=== PATIENT | male | born 1940 | race Caucasian/White ===

== ENCOUNTER → 2018-02-08 | Outpatient (CLI) | payer MEDICARE, OTHER ==
[2018-02-08 12:29] LABS: ABSOLUTE EOSINOPHILS # (AUTO) 0.1 10^3/uL (0.0-0.6); ABSOLUTE LYMPHOCYTES (AUTO) 1.4 10^3/uL (0.5-4.7); ABSOLUTE MONOCYTES (AUTO) 0.4 10^3/uL (0.1-1.4); ABSOLUTE NEUT (AUTO) 3.9 10^3/uL (1.7-8.2); BASOPHILS % (AUTO) 0.3 % (0-2); EOSINOPHILS % (AUTO) 1.2 % (0-6); HEMATOCRIT 36.7 % (37.9-51.0); HEMOGLOBIN 12.4 g/dL (13.5-17.0); LYMPHOCYTES % (AUTO) 24.5 % (13-45); MEAN CORPUSCULAR HEMOGLOBIN 29.3 pg (27.0-33.4); MEAN CORPUSCULAR HGB CONC 33.8 g/dL (32.0-36.0); MEAN CORPUSCULAR VOLUME 87 fl (80-97); MONOCYTES % (AUTO) 6.6 % (3-13); PLATELET COUNT 155 10^3/uL (150-450); RED BLOOD COUNT 4.24 10^6/uL (4.35-5.55); RED CELL DISTRIBUTION WIDTH 13.1 % (11.5-14.0); SEGMENTED NEUTROPHILS % (AUTO) 67.4 % (42-78); TOTAL CELLS COUNTED % (AUTO) 100 %; WHITE BLOOD COUNT 5.8 10^3/uL (4.0-10.5)
[2018-02-08 12:59] LABS: ALANINE AMINOTRANSFERASE 31 U/L (21-72); ALBUMIN 4.3 g/dL (3.5-5.0); ALKALINE PHOSPHATASE 50 U/L (38-126); ANION GAP 11 (5-19); ASPARTATE AMINO TRANSFERASE 26 U/L (17-59); BILIRUBIN,DIRECT 0.2 mg/dL (0.0-0.4); BILIRUBIN,TOTAL 0.4 mg/dL (0.2-1.3); BLOOD UREA NITROGEN 20 mg/dL (7-20); CALCIUM 9.5 mg/dL (8.4-10.2); CARBON DIOXIDE 28 mmol/L (22-30); CHLORIDE 104 mmol/L (98-107); GLUCOSE 107 mg/dL (75-110); POTASSIUM 5.4 mmol/L (3.6-5.0); SODIUM 143.1 mmol/L (137-145); TOTAL PROTEIN 6.5 g/dL (6.3-8.2)
== END ==
LOC: OD 11:30
PROVIDERS: ATTEND Physician Assistant
DX: I10 Essential (primary) hypertension (principal); Z11.2 Encounter for screening for other bacterial diseases
CPT/HCPCS: 36415; 80053; 85025

== ENCOUNTER 2020-10-29 14:59 | Emergency (ER) | payer MEDICARE ==
--- NOTE | 2020-10-29 15:45 | ER Document Report ---
ED Medical Screen (RME) - General Chief Complaint: Flu Symptoms Stated Complaint: COUGH Time Seen by Provider: 10/29/20 15:35 Primary Care Provider: EMELYN THORNE PA [Primary Care Provider] - Follow up as needed Notes: HPI: 80-year-old male with history of coronary artery disease, hypertension presenting for 6 days of cough with some shortness of breath. Patient has had generalized body ache and myalgia as well. Saw his PCP yesterday was placed on Levaquin and steroids states that those caused generalized extremity spasms in the upper extremities last night. Did not feel any better today so called his PCP back who referred him to the emergency department for evaluation of possible Covid PHYSICAL EXAMINATION: Lung sounds are clear to auscultation although somewhat decreased in the bases. Regular rate and rhythm. Ambulatory in no acute distress I have greeted and performed a rapid initial assessment of this patient. A comprehensive ED assessment and evaluation of the patient, analysis of test results and completion of medical decision making process will be conducted by an additional ED providers. TRAVEL OUTSIDE OF THE [place] IN LAST 30 DAYS: No - Related Data Allergies/Adverse Reactions: No Known Allergies Allergy (Verified 10/29/20 15:30) Past Medical History - Past Medical History Cardiac Medical History: Reports: Hx Coronary Artery Disease, Hx Hypercholesterolemia, Hx Hypertension Pulmonary Medical History: Denies: Hx Tuberculosis Past Surgical History: Reports: Hx Appendectomy - Immunizations Hx Diphtheria, Pertussis, Tetanus Vaccination: Yes Physical Exam - Vital signs Vitals: Temp Pulse Resp BP Pulse Ox 100.0 F 100 20 149/61 H 95 10/29/20 15:07 10/29/20 15:07 10/29/20 15:07 10/29/20 15:07 10/29/20 15:07 Course - Vital Signs Vital signs: Temp Pulse Resp BP Pulse Ox 100.0 F 100 20 149/61 H 95 10/29/20 15:07 10/29/20 15:07 10/29/20 15:07 10/29/20 15:07 10/29/20 15:07 - Laboratory Results Critical Laboratory Results Reviewed: No Critical Results - Radiology Results Critical Radiology Results Reviewed: No Critical Results Doctor's Discharge - Discharge Referrals: EMELYN THORNE PA [Primary Care Provider] - Follow up as needed
--- NOTE | 2020-10-29 16:24 | RADIOLOGY REPORT (SQ) ---
EXAM DESCRIPTION: CHEST SINGLE VIEW IMAGES COMPLETED DATE/TIME: 10/29/2020 4:08 pm REASON FOR STUDY: cough COMPARISON: 11/24/2014. EXAM PARAMETERS: NUMBER OF VIEWS: One view. TECHNIQUE: Single frontal radiographic view of the chest acquired. RADIATION DOSE: NA LIMITATIONS: None. FINDINGS: LUNGS AND PLEURA: Minimal linear densities in the lung bases, left greater than right. No lobar infiltrates, masses or pneumothorax. No pleural effusion. MEDIASTINUM AND HILAR STRUCTURES: No masses. Contour normal. HEART AND VASCULAR STRUCTURES: Heart normal in size. Normal vasculature. BONES: No acute findings. HARDWARE: None in the chest. Hardware in the left shoulder. OTHER: No other significant finding. IMPRESSION: MILD BASILAR ATELECTASIS/ SCARRING. POSSIBLE EARLY AIRSPACE DISEASE IN THE LEFT LUNG BA SE. TECHNICAL DOCUMENTATION: JOB ID: [id number] [employer]- All Rights Reserved Reading location - IP/workstation name: [email or web address]
[2020-10-29 16:46] LABS: ABSOLUTE LYMPHOCYTES (AUTO) 0.9 10^3/uL (0.5-4.7); ABSOLUTE MONOCYTES (AUTO) 0.3 10^3/uL (0.1-1.4); ABSOLUTE NEUT (AUTO) 3.8 10^3/uL (1.7-8.2); BASOPHILS % (AUTO) 0.1 % (0-2); HEMATOCRIT 30.4 % (37.9-51.0); HEMOGLOBIN 10.2 g/dL (13.5-17.0); LYMPHOCYTES % (AUTO) 17.6 % (13-45); MEAN CORPUSCULAR HEMOGLOBIN 28.1 pg (27.0-33.4); MEAN CORPUSCULAR HGB CONC 33.6 g/dL (32.0-36.0); MEAN CORPUSCULAR VOLUME 84 fl (80-97); MONOCYTES % (AUTO) 6.7 % (3-13); PLATELET COUNT 127 10^3/uL (150-450); RED BLOOD COUNT 3.64 10^6/uL (4.35-5.55); SEGMENTED NEUTROPHILS % (AUTO) 75.6 % (42-78); TOTAL CELLS COUNTED % (AUTO) 100 %
[2020-10-29] MEDS ORDERED: ACETAMINOPHEN SOLN 325 MG/10.15 ML UDCUP PO ONE ×2 (17:08→18:02)
[2020-10-29 17:16] LABS: ALBUMIN 3.8 g/dL (3.5-5.0); ALKALINE PHOSPHATASE 66 U/L (38-126); ANION GAP 9 (5-19); ASPARTATE AMINO TRANSFERASE 89 U/L (17-59); BILIRUBIN,DIRECT 0.2 mg/dL (0.0-0.4); BLOOD UREA NITROGEN 21 mg/dL (7-20); CALCIUM 7.9 mg/dL (8.4-10.2); CARBON DIOXIDE 25 mmol/L (22-30); CHLORIDE 103 mmol/L (98-107); GLUCOSE 109 mg/dL (75-110); POTASSIUM 4.3 mmol/L (3.6-5.0); TOTAL PROTEIN 6.9 g/dL (6.3-8.2)
[2020-10-29] MEDS ORDERED: NORMAL SALINE 500 ML IV ONE (17:33)
--- NOTE | 2020-10-29 17:37 | ER Document Report ---
ED General - General Chief Complaint: Flu Symptoms Stated Complaint: COUGH Time Seen by Provider: 10/29/20 15:35 Primary Care Provider: EMELYN THORNE PA [PHYSICIAN PAYROLL SECRETARY] - Follow up as needed TRAVEL OUTSIDE OF THE [place] IN LAST 30 DAYS: No - HPI Notes: Patient is a 80-year-old male who presents to the emergency department for evaluation of cough. The patient had symptoms for about 6 days. He has an intermittently productive cough. He states he just feels weak and malaised. He denies any known fever, states he has been taking his temperature at home with a scanning thermometer, it has never been elevated. He saw his primary care provider yesterday. He was started on steroids and Levaquin. He started those, states last night he had uncontrollable shaking, spasms in his arm, and does not believe he can tolerate these medications. Patient states he has some pain in his lower back because he has been laying around in bed more frequently, but he denies any other pain. No anosmia, no difficulty with sense of taste. No sore throat or ear pain. No nausea, vomiting, nor diarrhea. His influenza shot is up-to-date. - Related Data Allergies/Adverse Reactions: No Known Allergies Allergy (Verified 10/29/20 15:30) Home Medications: List reviewed, please see nursing notes Past Medical History - General Information source: Patient - Social History Smoking Status: Former Smoker Family History: None - Past Medical History Cardiac Medical History: Reports: Hx Coronary Artery Disease, Hx Hypercholesterolemia, Hx Hypertension Pulmonary Medical History: Denies: Hx Tuberculosis GI Medical History: Reports: Hx Gastroesophageal Reflux Disease Past Surgical History: Reports: Hx Appendectomy, Hx Cardiac Catheterization - multiple stents - Immunizations Hx Diphtheria, Pertussis, Tetanus Vaccination: Yes Hx Pneumococcal Vaccination: 08/13/12 Review of Systems - Review of Systems Constitutional: See HPI EENT: No symptoms reported Cardiovascular: No symptoms reported Respiratory: See HPI Gastrointestinal: No symptoms reported Genitourinary: No symptoms reported Musculoskeletal: See HPI Skin: No symptoms reported Neurological/Psychological: No symptoms reported Physical Exam - Vital signs Vitals: Temp Pulse Resp BP Pulse Ox 100.0 F 100 20 149/61 H 95 10/29/20 15:07 10/29/20 15:07 10/29/20 15:07 10/29/20 15:07 10/29/20 15:07 - Notes Notes: Vital signs reviewed, please refer to chart. Head is normocephalic, atraumatic. Pupils equal round, reactive to light. Oral mucosa is moist. Pharynx is mildly erythematous without exudate. Neck is supple without meningismus. Heart is regular rate and rhythm. Lungs reveal diminished breath sounds in the bases but no wheezes, rales, rhonchi noted. Abdomen is soft, nontender, normoactive bowel sounds throughout. Extremities without cyanosis, clubbing. Posterior calves are nontender. Peripheral pulses are equal. Skin is hot to the touch and dry. Patient is awake, alert, neurological exam is nonfocal. Course - Re-evaluation Re-evalutation: 10/29/20 17:35 Patient presents the emergency department for evaluation. He was initially seen through triage. Laboratory investigations, influenza swab, Covid test, chest x- ray were ordered. He was also ordered Tylenol. His initial temperature was listed as 100.0, at the time of my exam I suspect it is much higher. Temperature is to be retaken. He is still waiting to get his Tylenol. Chest x-ray interpreted by radiology as showing possible beginning of the left lower lobe infiltrate. The patient is not tolerating Levaquin. I do not believe that steroids are indicated at this point, certainly because he would still be a rule out Covid patient, and it is possible that steroids cause harm in the setting of normal oxygenation. He is told to discontinue the Levaquin and the steroids. I will start him on a different antibiotic for pneumonia. IV fluids ordered. Patient is currently stable. - Vital Signs Vital signs: Temp Pulse Resp BP Pulse Ox 102.9 F H 100 24 H 131/61 H 93 10/29/20 17:37 10/29/20 15:07 10/29/20 17:01 10/29/20 17:00 10/29/20 17:01 - Laboratory Results Result Diagrams: 10/29/20 16:19 10/29/20 16:19 Laboratory Results Interpreted: 10/29/20 10/29/20 16:19 16:19 RBC 3.64 L Hgb 10.2 L Hct 30.4 L Plt Count 127 L Sodium 136.9 L BUN 21 H Creatinine 1.30 H Est GFR (MDRD) Non-Af 53 L Calcium 7.9 L AST 89 H ALT 57 H Critical Laboratory Results Reviewed: No Critical Results - Radiology Results Radiology Results Interpreted: 10/29/20 18:32 Chest X-Ray 10/29/20 15:42 IMPRESSION: MILD BASILAR ATELECTASIS/ SCARRING. POSSIBLE EARLY AIRSPACE DISEASE IN THE LEFT LUNG BASE. Critical Radiology Results Reviewed: No Critical Results Discharge - Discharge Clinical Impression: Person under investigation for COVID-19 Pneumonia Qualifiers: Pneumonia type: due to unspecified organism Laterality: left Lung location: lower lobe of lung Qualified Code(s): J18.9 - Pneumonia, unspecified organism Condition: Stable Disposition: HOME, SELF-CARE Instructions: COVID-19 Guidance for Persons Under Investigation, Acetaminophen, Pneumonia ([facility]) Additional Instructions: Your findings this evening are concerning for possible early pneumonia. Please discontinue the Levaquin and the steroids you had previously started. Take the doxycycline as directed until it is gone. At this point you are considered a person under investigation for possible COVID-19 and infection. You should quarantine at home, as should any other members of your household, for the next 10 to 14 days. Symptomatic medications as needed. Follow-up with your primary care provider. If you develop worsening or new concerning symptoms of any sort, please return immediately to the emergency department for reevaluation. Referrals: EMELYN THORNE PA [PHYSICIAN PAYROLL SECRETARY] - Follow up as needed
[2020-10-29 17:46] LABS: A TYPE INFLUENZA AG NEGATIVE (NEGATIVE); B INFLUENZA AG NEGATIVE (NEGATIVE)
[2020-10-29] MEDS ORDERED: ACETAMINOPHEN 325 MG TABLET PO ONE (17:54)
[2020-10-29] MEDS ORDERED: DOXYCYCLINE HYCLATE 100 MG TABLET PO ONE (18:31)
[2020-10-29 19:04] VITALS: BP 138/67
== END 2020-10-29 19:08 | disposition home or self-care (01) ==
LOC: ER 14:59
DX: U07.1 COVID-19 (principal); J18.9 Pneumonia, unspecified organism; R53.1 Weakness; R53.81 Other malaise; R50.9 Fever, unspecified
CPT/HCPCS: 99284; 96360; 36415; 85025; 80053; 84484; 87804; 71045; U0003; A9270 ×2; J7040; C9803; 87635; J3490

== ENCOUNTER 2020-11-14 16:00 | Emergency (ER) | payer MEDICARE, OTHER ==
--- NOTE | 2020-11-14 16:46 | ER Document Report ---
ED Medical Screen (RME) - General Chief Complaint: Nose Bleed Stated Complaint: NOSE BLEED Time Seen by Provider: 11/14/20 16:39 Primary Care Provider: LEXUS YUNG MD [Primary Care Provider] - Follow up as needed TRAVEL OUTSIDE OF THE [place] IN LAST 30 DAYS: No - HPI Notes: 11/14/20 16:40 9-year-old male presents to the emergency room today for epistaxis that started approximately 1 hour ago. Patient reports that he did have a nosebleed the other day, was able to pinch it off with pressure and petroleum jelly. States today he was just out and about and he felt break open and he has had copious amount of blood drained from his left nostril. Patient is on baby aspirin. Patient is Covid positive. Denies any chest pain, shortness of breath, lightheadedness, dizziness, blurred vision, double vision, loss of vision. I have greeted and performed a rapid initial assessment of this patient. A comprehensive ED assessment and evaluation of the patient, analysis of test results and completion of the medical decision making process will be conducted by additional ED providers. PHYSICAL EXAMINATION: GENERAL: Well-appearing, well-nourished and in no acute distress. HEAD: Atraumatic, normocephalic. ENT: active bleeding from left nostril. neuro: speech clear The patient was evaluated during a global COVID-19 pandemic and that diagnosis was suspected/considered upon their initial presentation. Their evaluation, treatment and testing was consistent with current guidelines for patients who present with complaints or symptoms and may be related to COVID-19. - Related Data Allergies/Adverse Reactions: No Known Allergies Allergy (Verified 10/29/20 15:30) Past Medical History - Past Medical History Cardiac Medical History: Reports: Hx Coronary Artery Disease, Hx Hypercholesterolemia, Hx Hypertension Pulmonary Medical History: Denies: Hx Tuberculosis GI Medical History: Reports: Hx Gastroesophageal Reflux Disease Past Surgical History: Reports: Hx Appendectomy, Hx Cardiac Catheterization - multiple stents - Immunizations Hx Diphtheria, Pertussis, Tetanus Vaccination: Yes Physical Exam - Vital signs Vitals: Temp Pulse Resp BP Pulse Ox 97.7 F 84 20 134/75 H 97 11/14/20 16:02 11/14/20 16:02 11/14/20 16:02 11/14/20 16:02 11/14/20 16:02 Course - Vital Signs Vital signs: Temp Pulse Resp BP Pulse Ox 97.7 F 84 20 134/75 H 97 11/14/20 16:02 11/14/20 16:02 11/14/20 16:02 11/14/20 16:02 11/14/20 16:02 Doctor's Discharge - Discharge Referrals: LEXUS YUNG MD [Primary Care Provider] - Follow up as needed
[2020-11-14] MEDS ORDERED: OXYMETAZOLINE HCL 0.05% NASAL SPRAY 15 ML BOTTLE NASL ONE (18:34)
--- NOTE | 2020-11-14 19:03 | ER Document Report ---
ED ENT - General TRAVEL OUTSIDE OF THE [place] IN LAST 30 DAYS: No <LUDWIN SCALES - Last Filed: 11/14/20 18:59> <ANGELIKA LOUISE Mati - Last Filed: 11/14/20 22:38> - General Chief Complaint: Nose Bleed Stated Complaint: NOSE BLEED Time Seen by Provider: 11/14/20 16:39 Primary Care Provider: ALLYSSA RIVERA DO [ASSOCIATE] - Follow up as needed LEXUS YUNG MD [Primary Care Provider] - Follow up as needed Notes: CHIEF COMPLAINT: Nosebleed HPI: 80-year-old male presenting to the emergency department for evaluation of nosebleed tonight. Patient is on Plavix. Patient states that he had a nosebleed a week ago that resolved with pressure. He states the nosebleed tonight also resolved with pressure. He states he feels well otherwise. States he was diagnosed with Covid 3 weeks ago and did quarantine for 10 days. Has no cough or fevers. ROS: See HPI - all other systems were reviewed and are otherwise negative Constitutional: no fever Eyes: no drainage, no blurred vision ENT: no runny nose, no sore throat, positive nosebleed Cardiovascular: no chest pain Resp: no SOB, no cough GI: no vomiting, no diarrhea, no abdominal pain : no dysuria Integumentary: no rash Allergy: no hives MEDICATIONS: I agree with the patient medications as charted by the RN. ALLERGIES: I agree with the allergies as charted by the RN. PAST MEDICAL HISTORY/PAST SURGICAL HISTORY: Reviewed and agree as charted by RN. SOCIAL HISTORY: Reviewed and agree as charted by RN. FAMILY HISTORY: No significant familial comorbid conditions directly related to patient complaint EXAM: Reviewed vital signs as charted by RN. CONSTITUTIONAL: Alert and oriented and responds appropriately to questions. Well-appearing; well-nourished HEAD: Normocephalic; atraumatic EYES: PERRL; Conjunctivae clear, sclerae non-icteric ENT: normal nose; no rhinorrhea; moist mucous membranes; pharynx without lesions noted, no uvula edema or deviation, no tonsillar hypertrophy, phonation normal. There is no active bleeding currently in the posterior pharynx or the left or right nares. Small amount of dried blood in the left nares but no definitive site of bleeding. NECK: Supple without meningismus; non-tender; no cervical lymphadenopathy, no masses CARD: RRR; no murmurs, no clicks, no rubs, no gallops; symmetric distal pulses RESP: Normal chest excursion without splinting or tachypnea; breath sounds clear and equal bilaterally; no wheezes, no rhonchi, no rales, pulse oximetry 98% on room air not hypoxic ABD/GI: non-distended BACK: The back appears normal EXT: Normal ROM in all joints; no cyanosis, no effusions, no edema SKIN: Normal color for age and race; warm; dry; good turgor NEURO: Moves all extremities equally; Motor and sensory function intact PSYCH: The patient's mood and manner are appropriate. Grooming and personal hygiene are appropriate. MDM: 80-year-old male left nosebleed tonight. No active bleeding currently. Will have nursing place Afrin on a cottonball in the left nostril to help seal what is likely a small venous bleed. He is on Plavix. Will check baseline screening labs including CBC CMP, PT. If patient has no rebleeding and labs are normal anticipate discharge home to follow-up with ENT (LUDWIN SCALES) MDM: 11/14/20 20:00 Patient handoff from Ludwin Scales NP. 11/14/20 22:30 Labwork resulted. CBC shows a low hemoglobin of 9.2. Patient's hemoglobin 10.2 on 10/29/20. I advised that the patient follow up with his PCP concerning his anemia. CMP and PT are unremarkable and within normal limits. Patient re-evaluated and afrin soaked cottonball removed. No bleeding visualized in either nare and no blood seen in the posterior pharynx. Patient will be discharged home with referral to ENT. Return precautions given. (ANGELIKA LOUISE) - Related Data Allergies/Adverse Reactions: No Known Allergies Allergy (Verified 10/29/20 15:30) Past Medical History - Social History Family History: None - Past Medical History Cardiac Medical History: Reports: Hx Coronary Artery Disease, Hx Hypercholesterolemia, Hx Hypertension Pulmonary Medical History: Denies: Hx Tuberculosis GI Medical History: Reports: Hx Gastroesophageal Reflux Disease Past Surgical History: Reports: Hx Appendectomy, Hx Cardiac Catheterization - multiple stents - Immunizations Hx Diphtheria, Pertussis, Tetanus Vaccination: Yes Hx Pneumococcal Vaccination: 08/13/12 <LUDWIN SCALES - Last Filed: 11/14/20 18:59> - Social History Smoking Status: Unknown if Ever Smoked <ANGELIKA LOUISE - Last Filed: 11/14/20 22:38> Physical Exam - Vital signs Vitals: Temp Pulse Resp BP Pulse Ox 97.7 F 84 20 134/75 H 97 11/14/20 16:02 11/14/20 16:02 11/14/20 16:02 11/14/20 16:02 11/14/20 16:02 Course - Laboratory Results Result Diagrams: 11/14/20 20:15 11/14/20 20:15 Critical Laboratory Results Reviewed: No Critical Results - Radiology Results Critical Radiology Results Reviewed: No Critical Results <ANGELIKA LOUISE - Last Filed: 11/14/20 22:38> - Vital Signs Vital signs: Temp Pulse Resp BP Pulse Ox 97.7 F 73 14 142/73 H 100 11/14/20 20:08 11/14/20 19:49 11/14/20 19:49 11/14/20 19:49 11/14/20 19:49 - Laboratory Results Laboratory Results Interpreted: 11/14/20 11/14/20 20:15 20:15 RBC 3.22 L Hgb 9.2 L Hct 27.2 L RDW 14.7 H Plt Count 92 L Carbon Dioxide 32 H Anion Gap 1 L Calcium 7.7 L Total Protein 5.3 L Albumin 2.8 L Discharge <LUDWIN SCALES - Last Filed: 11/14/20 18:59> <ANGELIKA LOUISE - Last Filed: 11/14/20 22:38> - Discharge Clinical Impression: Epistaxis Condition: Stable Disposition: HOME, SELF-CARE Additional Instructions: You were seen today for a nosebleed. If this restarts please apply direct pressure to the area for 15 minutes without releasing pressure. You can use 4-5 sprays the Afrin (oxymetazoline) spray that was given to you here in the emergency room into the affected side prior to applying the pressure. You need t o apply vasaline or a similar product along the inside of the side of the nose that is bleeding twice daily to help heal the inside of your nose. Please return to emergency department if these measures do not control the bleeding. Please also return if you pass out, have significant pain of the nose or face, or any other symptoms that are concerning to you. Your primary care doctor regarding today's visit. Referrals: LEXUS YUNG MD [Primary Care Provider] - Follow up as needed ALLYSSA RIVERA DO [ASSOCIATE] - Follow up as needed
[2020-11-14 20:45] LABS: ABSOLUTE EOSINOPHILS # (AUTO) 0.1 10^3/uL (0.0-0.6); ABSOLUTE LYMPHOCYTES (AUTO) 1.3 10^3/uL (0.5-4.7); ABSOLUTE MONOCYTES (AUTO) 0.2 10^3/uL (0.1-1.4); ABSOLUTE NEUT (AUTO) 4.8 10^3/uL (1.7-8.2); BASOPHILS % (AUTO) 0.2 % (0-2); EOSINOPHILS % (AUTO) 1.7 % (0-6); HEMATOCRIT 27.2 % (37.9-51.0); HEMOGLOBIN 9.2 g/dL (13.5-17.0); LYMPHOCYTES % (AUTO) 20.5 % (13-45); MEAN CORPUSCULAR HEMOGLOBIN 28.5 pg (27.0-33.4); MEAN CORPUSCULAR HGB CONC 33.8 g/dL (32.0-36.0); MEAN CORPUSCULAR VOLUME 84 fl (80-97); MONOCYTES % (AUTO) 3.3 % (3-13); RED BLOOD COUNT 3.22 10^6/uL (4.35-5.55); RED CELL DISTRIBUTION WIDTH 14.7 % (11.5-14.0); SEGMENTED NEUTROPHILS % (AUTO) 74.3 % (42-78); TOTAL CELLS COUNTED % (AUTO) 100 %; WHITE BLOOD COUNT 6.5 10^3/uL (4.0-10.5)
[2020-11-14 20:51] LABS: INTERNATIONAL RATION (INR) 1.02; PROTHROMBIN TIME 13.6 SEC (11.4-15.4)
[2020-11-14 21:00] LABS: ALBUMIN 2.8 g/dL (3.5-5.0); ALKALINE PHOSPHATASE 58 U/L (38-126); ASPARTATE AMINO TRANSFERASE 30 U/L (17-59); BILIRUBIN,DIRECT 0.1 mg/dL (0.0-0.4); BILIRUBIN,TOTAL 0.5 mg/dL (0.2-1.3); BLOOD UREA NITROGEN 18 mg/dL (7-20); CALCIUM 7.7 mg/dL (8.4-10.2); CHLORIDE 105 mmol/L (98-107); GLUCOSE 110 mg/dL (75-110); POTASSIUM 3.8 mmol/L (3.6-5.0); TOTAL PROTEIN 5.3 g/dL (6.3-8.2)
[2020-11-14 21:05] LABS: CARBON DIOXIDE 32 mmol/L (22-30)
[2020-11-14 21:08] LABS: PLATELET COUNT 92 10^3/uL (150-450)
[2020-11-14 21:12] LABS: ANION GAP 1 (5-19)
[2020-11-14 22:57] VITALS: BP 116/67
== END 2020-11-14 22:50 | disposition home or self-care (01) ==
LOC: ER 16:00
DX: R04.0 Epistaxis (principal); Z79.02 Long term (current) use of antithrombotics/antiplatelets; I25.10 Atherosclerotic heart disease of native coronary artery without angina pectoris; I10 Essential (primary) hypertension
CPT/HCPCS: 99283; 36415; 85025; 85610; 80053; 30901; A9270; J3490

== ENCOUNTER 2020-11-15 06:42 | Emergency (ER) | payer MEDICARE ==
[2020-11-15 06:59] VITALS: BP 121/54
[2020-11-15] MEDS ORDERED: LIDOCAINE 2% URO-JET 5 ML KIT MM ONE (08:19)
--- NOTE | 2020-11-15 08:33 | ER Document Report ---
ED ENT - General Chief Complaint: Nose Bleed Stated Complaint: NOSE BLEEDS/ACTIVE BLEED Time Seen by Provider: 11/15/20 08:11 Primary Care Provider: ALLYSSA RIVERA DO [ASSOCIATE] - Follow up as needed LEXUS YUNG MD [Primary Care Provider] - Follow up as needed Notes: CHIEF COMPLAINT: Nosebleed this morning HPI: 80-year-old male presenting for evaluation of the left nosebleed again this morning. Woke up at 5 AM with bleeding from the left nostril. Patient was seen here yesterday for same complaint. Patient denies other concerns at this time. ROS: See HPI - all other systems were reviewed and are otherwise negative Constitutional: no fever Eyes: no drainage, no blurred vision ENT: no runny nose, no sore throat, positive nosebleed Integumentary: no rash Allergy: no hives MEDICATIONS: I agree with the patient medications as charted by the RN. ALLERGIES: I agree with the allergies as charted by the RN. PAST MEDICAL HISTORY/PAST SURGICAL HISTORY: Reviewed and agree as charted by RN. SOCIAL HISTORY: Reviewed and agree as charted by RN. FAMILY HISTORY: No significant familial comorbid conditions directly related to patient complaint EXAM: Reviewed vital signs as charted by RN. CONSTITUTIONAL: Alert and oriented and responds appropriately to questions. Well-appearing; well-nourished HEAD: Normocephalic; atraumatic EYES: PERRL; Conjunctivae clear, sclerae non-icteric ENT: normal nose; no rhinorrhea; moist mucous membranes; pharynx without lesions noted, no uvula edema or deviation, no tonsillar hypertrophy, phonation normal. There is some fresh blood in the left nostril. Small amount of fresh blood in the posterior pharynx. No active hemorrhage. NECK: Supple without meningismus; non-tender; no cervical lymphadenopathy, no masses CARD: RRR; no murmurs, no clicks, no rubs, no gallops; symmetric distal pulses RESP: Normal chest excursion without splinting or tachypnea; breath sounds clear and equal bilaterally; no wheezes, no rhonchi, no rales, pulse oximetry 97% on room air not hypoxic ABD/GI: Normal bowel sounds; non-distended; soft, non-tender, no rebound, no guarding; no palpable organomegaly or masses. BACK: The back appears normal EXT: Normal ROM in all joints; no cyanosis, no effusions, no edema SKIN: Normal color for age and race; warm; dry; good turgor; no acute lesions noted NEURO: Moves all extremities equally; Motor and sensory function intact PSYCH: The patient's mood and manner are appropriate. Grooming and personal hygiene are appropriate. MDM: 80-year-old male bleeding from the left nostril second visit for same. I did review the patient's labs from yesterday, noted to be mildly anemic. Patient does not want blood redrawn today. States his normal hemoglobin is ranges between 9 and 11. Given second visit for nosebleed we will plan to insert Rhino Rocket and refer to ENT. TRAVEL OUTSIDE OF THE [place] IN LAST 30 DAYS: No - Related Data Allergies/Adverse Reactions: No Known Allergies Allergy (Verified 11/15/20 07:47) Home Medications: clopedigrel, metoprol, omeprazole, ezetimibe, lisinopril, Rosuvastatin, CoQ10, ASA Past Medical History - Social History Smoking Status: Former Smoker Chew tobacco use (# tins/day): No Frequency of alcohol use: Occasional Drug Abuse: None Family History: None Patient has homicidal ideation: No - Past Medical History Cardiac Medical History: Reports: Hx Coronary Artery Disease, Hx Hypercholesterolemia, Hx Hypertension Pulmonary Medical History: Denies: Hx Tuberculosis GI Medical History: Reports: Hx Gastroesophageal Reflux Disease Past Surgical History: Reports: Hx Appendectomy, Hx Cardiac Catheterization - multiple stents - Immunizations Hx Diphtheria, Pertussis, Tetanus Vaccination: Yes Hx Pneumococcal Vaccination: 08/13/12 Physical Exam - Vital signs Vitals: Temp Pulse Resp BP Pulse Ox 97.8 F 78 18 121/54 L 94 11/15/20 06:54 11/15/20 06:54 11/15/20 06:54 11/15/20 06:54 11/15/20 06:54 Course - Re-evaluation Re-evalutation: 11/15/20 08:49 Initially I was unable to place a 5.5 cm Rhino Rocket in the left nostril patient was very uncomfortable despite numbing medicine. I placed a Merisel in the left nostril which seemed to stop any blood flow but approximately 5 minutes after the Merisel was placed patient called me back into the room as he was bleeding copiously from the nose and down the posterior pharynx. I remove the Merisel and was able to more fully insert the 5.5 cm Rhino Rocket in the left nostril to tamponade the blood flow. I did inflate it and will observe the patient for rebleeding. 11/15/20 09:46 No further bleeding at this time patient wishes to go home. Will be referred to ENT. - Vital Signs Vital signs: Temp Pulse Resp BP Pulse Ox 97.8 F 78 18 121/54 L 94 11/15/20 06:54 11/15/20 06:54 11/15/20 06:54 11/15/20 06:54 11/15/20 06:54 - Laboratory Results Critical Laboratory Results Reviewed: No Critical Results - Radiology Results Critical Radiology Results Reviewed: No Critical Results Procedures - Nosebleed Procedure Left Time completed: 08:54 Location: Posterior Supplies used: Nasal tampon, Rhinorocket Notes: Left nostril packed with a 5.5 cm Rhino Rocket after Merocel did not stop bleeding Discharge - Discharge Clinical Impression: Epistaxis Condition: Stable Disposition: HOME, SELF-CARE Instructions: Nosebleed Instructions (OM) Additional Instructions: 1. do not blow the nose as this may lead to further bleeding 2. if the nose rebleeds, pinch the nose to apply pressure and tilt the head forward 3. follow up with ENT for further evaluation and treatment call for appt 4. return to the ED for any onset of nasal bleeding that does not stop with pressure as discussed 5. use a humidifier at home to help prevent rebleeding 6. The packing will need to be removed by the ENT in office 7. Hold the Plavix for the next 3 days Prescriptions: Hydrocodone/Acetaminophen [Rodessa 5-325 mg Tablet] 1 tab PO Q6HP PRN #10 tablet PRN Reason: Amoxicillin/Potassium Clav [Augmentin 875-125 Tablet] 1 tab PO Q12 #10 tablet Referrals: LEXUS YUNG MD [Primary Care Provider] - Follow up as needed ALLYSSA RIVERA DO [ASSOCIATE] - Follow up as needed
== END 2020-11-15 10:01 | disposition home or self-care (01) ==
LOC: ER 06:42
DX: R04.0 Epistaxis (principal); I25.10 Atherosclerotic heart disease of native coronary artery without angina pectoris; E78.00 Pure hypercholesterolemia, unspecified; I10 Essential (primary) hypertension; K21.9 Gastro-esophageal reflux disease without esophagitis; Z79.899 Other long term (current) drug therapy; Z79.82 Long term (current) use of aspirin; Z87.891 Personal history of nicotine dependence
CPT/HCPCS: 30901; 99284; A9270; J3490

== ENCOUNTER 2020-12-14 08:12 | Emergency (ER) | payer MEDICARE ==
--- NOTE | 2020-12-14 08:35 | ER Document Report ---
ED ENT - General Chief Complaint: Nose Bleed Stated Complaint: NOSE BLEED Time Seen by Provider: 12/14/20 08:34 Primary Care Provider: LEXUS YUNG MD [Primary Care Provider] - Follow up as needed Mode of Arrival: Ambulatory Information source: Patient Notes: PRIOR ED VISITEmergency Provider: LUDWIN NINADate: 11/15/20 08:30 Primary Care Provider: ALLYSSA RIVERA DO [ASSOCIATE] - Follow up as needed LEXUS YUNG MD [Primary Care Provider] - Follow up as needed CHIEF COMPLAINT: Nosebleed this morning HPI: 80-year-old male presenting for evaluation of the left nosebleed again this morning. Woke up at 5 AM with bleeding from the left nostril. Patient was seen here yesterday for same complaint. Patient denies other concerns at this time. 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 Patient reports hx of chronic nosebleed and has been assessed in ED multiple times with same complaint. Patient reports last visit, nose required "packing". 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 Patient reports scab was present. Patient reports he has been using Simply Saline at home as instructed. Patient reports mild runny nose and reports some intermittent sneezing. Patient reports this morning he ambulated to the bathroom, sat down. Reports he was not straining at the time nosebleed began. Patient reports bleeding is mostly L nostril but reports blood coming from R nostril d/t "overflowing". Patient reports he is currently on blood thinners. Patient taking Plavix. Patient is AOx4 with even and unlabored respirations speaking in clear and complete sentences, nad noted. Ambulatory with even and steady gait. at bedside. 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 Patient reports nosebleeds on a left-sided basis with some running down his right nostril as well. He is spitting up blood clots. Patient reports this is the worst he has ever had of nosebleed. 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 Also "10 days ago he had ENT DrKelseyka partner cauterized the back of his nose with a silver nitrate stick. " We were forced to use TXA on this patient's nose as well as Afrin spray and also a nasal tampon with TXA coated. We applied some K-Y jelly to the tampon prior to insertion. We also applied a nasal clip to his external nose. Patient's blood pressure was 150 systolic and he says he usually takes Plavix and aspirin 81 mg on a daily basis. Patient also takes metoprolol daily; he reports his blood pressure usually runs no more than 130 systolic. TRAVEL OUTSIDE OF THE [place] IN LAST 30 DAYS: No - HPI Patient complains to provider of: Nose problem Onset: This morning Onset/Duration: Sudden, Persistent, Worse Severity: Moderate Pain Level: 2 Context: Injury. denies: Allergies, Recent Illness, Travel Location of pain: Nose Similar symptoms previously: Yes Recently seen / treated by doctor: Yes - Related Data Allergies/Adverse Reactions: No Known Allergies Allergy (Verified 11/15/20 07:47) Home Medications: [place], Omeprazole, Lisinopril, Metoprolol, Plavix Past Medical History - Social History Smoking Status: Unknown if Ever Smoked Family History: None - Past Medical History Cardiac Medical History: Reports: Hx Coronary Artery Disease, Hx Hypercholesterolemia, Hx Hypertension Pulmonary Medical History: Denies: Hx Tuberculosis GI Medical History: Reports: Hx Gastroesophageal Reflux Disease Past Surgical History: Reports: Hx Appendectomy, Hx Cardiac Catheterization - multiple stents - Immunizations Hx Diphtheria, Pertussis, Tetanus Vaccination: Yes Hx Pneumococcal Vaccination: 08/13/12 Physical Exam - Vital signs Vitals: Temp Resp BP 98.7 F 20 158/75 H 12/14/20 08:17 12/14/20 08:17 12/14/20 08:17 Interpretation: Normal - General General appearance: Appears well, Alert - HEENT Head: Normocephalic, Atraumatic Eyes: Normal Extraocular movements intact: Yes Pupils: PERRL Ears: Normal Nasal: Epistaxis - Left greater than the right nostril. Mouth/Lips: Normal - Except for blood clots from posterior throat. Pharynx: Other - Blood clots draining from superiorly Neck: Normal - Respiratory Respiratory status: No respiratory distress Chest status: Nontender Breath sounds: Normal Chest palpation: Normal - Cardiovascular Rhythm: Regular Heart sounds: Normal auscultation Murmur: No - Abdominal Inspection: Normal Distension: No distension Bowel sounds: Normal Tenderness: Nontender Organomegaly: No organomegaly - Rectal Prostate: Other - Deferred - Genitourinary Scrotum: Other - Deferred - Back Back: Normal, Nontender - Extremities General upper extremity: Normal inspection, Nontender, Normal color, Normal ROM, Normal temperature General lower extremity: Normal inspection, Nontender, Normal color, Normal ROM, Normal temperature, Normal weight bearing. No: Baljeet's sign - Neurological Neuro grossly intact: Yes Cognition: Normal Orientation: AAOx4 [place] Coma Scale Eye Opening: Spontaneous [place] Coma Scale Verbal: Oriented [place] Coma Scale Motor: Obeys Commands Benny Coma Scale Total: 15 Speech: Normal Motor strength normal: LUE, RUE, LLE, RLE Sensory: Normal - Psychological Associated symptoms: Normal affect, Normal mood - Skin Skin Temperature: Warm Skin Moisture: Dry Skin Color: Normal Course - Vital Signs Vital signs: Temp Pulse Resp BP Pulse Ox 98.7 F 95 20 120/60 12/14/20 08:17 12/14/20 11:02 12/14/20 08:17 12/14/20 11:02 Procedures - Nosebleed Procedure Left Time completed: 09:21 Location: Anterior Supplies used: Nasal tampon, Other - TXA and Afrin nasal spray; patient tolerated this well but had sneezing around 0 915 Critical Care Note - Critical Care Note Total time excluding time spent on procedures (mins): 90 - nasal packing and calling referrals Comments: 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 Rivera ENT and voice male message was sent. Patient much improved by 1100 hrs. and eating a turkey sandwich but reports patient feels he cannot go home. CT scan reveals bilateral sinus fluid and patient was written for Augmentin 875. I called [facility] and spoke with Spc Peralta and she will arrange for discussion with ENT. She returned call at 1133 and advised that she spoke with the ENT on-call and they advised tertiary care centers but also advised they are on diversion at this time as well. I spoke with patient about this situation and he advises [facility] because his personal Dr. Brown; I attempted to reach Arjay around 1140 but was only able to reach a return call site. This is on the transfer center line. By 1210 I was able to speak with Sheryl who advised Dr. Piper reported to her on telephone line that patient should have a ENT here. Discharge - Discharge Clinical Impression: Epistaxis not due to trauma Hypertension Qualifiers: Hypertension type: unspecified Qualified Code(s): I10 - Essential (primary) hypertension Condition: Stable Referrals: LEXUS YUNG MD [Primary Care Provider] - Follow up as needed
[2020-12-14] MEDS ORDERED: TRANEXAMIC ACID INJ/PF 1,000 MG/10 ML SDV TOP ONE (08:39)
[2020-12-14] MEDS ORDERED: BENZOCAINE 20% AEROSOL SPRAY 60 GM TP ONE ×2 (08:46→08:47)
[2020-12-14] MEDS ORDERED: OXYMETAZOLINE HCL 0.05% NASAL SPRAY 15 ML BOTTLE NASL ONE (08:48)
[2020-12-14] MEDS ORDERED: CLONIDINE HCL 0.1 MG TABLET PO ONE (09:17)
--- NOTE | 2020-12-14 10:25 | RADIOLOGY REPORT (SQ) ---
EXAM DESCRIPTION: CT FACIAL AREA WITHOUT IMAGES COMPLETED DATE/TIME: 12/14/2020 9:44 am REASON FOR STUDY: nosebleed basal cell cancer COMPARISON: None. TECHNIQUE: Noncontrasted images through the facial bones and orbits windowed for bone and soft tissu e. Additional coronal and sagittal reconstructed images reviewed. All images stored on PACS. All CT scanners at this facility use dose modulation, iterative reconstruction, and/or weight based d osing when appropriate to reduce radiation dose to as low as reasonably achievable (ALARA). [facility]: Dose Right [facility]: CareDose [facility]: Dose Right [facility]: Teradose 4D [facility]: Smart Shopography RADIATION DOSE: CT Rad equipment meets quality standard of care and radiation dose reduction techniq ues were employed. CTDIvol: 30.4 mGy. DLP: 642 mGy-cm. mGy. LIMITATIONS: None. FINDINGS: FACIAL BONES: No fracture or bone lesion. ORBITS: Intact. No fracture. Symmetric intact globes and retroorbital soft tissues. NASAL PASSAGE: Heterogenous material filling the left nasal passage. S shaped curvature of the nasa l septum. PARANASAL SINUSES: Fluid in the maxillary sinuses. Small amounts of fluid in the lower left ethmoid s inuses and minimal fluid in the sphenoid sinuses. SOFT TISSUES: No mass or edema. INFERIOR BRAIN: Limited view. No acute findings. OTHER: No other significant finding. IMPRESSION: HETEROGENOUS MATERIAL FILLING THE LEFT NASAL PASSAGE, NONSPECIFIC. PRESUMABLY DUE TO BL OOD. FLUID IN THE SINUSES. NO FRACTURES. TECHNICAL DOCUMENTATION: JOB ID: [id number] Quality ID # [id number]: Final reports with documentation of one or more dose reduction techniques (e.g., Au tomated exposure control, adjustment of the mA and/or kV according to patient size, use of iterative reconstruction technique) 2010 [employer]- All Rights Reserved Reading location - IP/workstation name: [email or web address]
--- NOTE | 2020-12-14 10:26 | RADIOLOGY REPORT (SQ) ---
EXAM DESCRIPTION: CT HEAD WITHOUT IMAGES COMPLETED DATE/TIME: 12/14/2020 9:44 am REASON FOR STUDY: nosebleed basal cell cancer COMPARISON: 04/13/2009. TECHNIQUE: Axial images acquired through the brain without intravenous contrast. Images reviewed wi th bone, brain and subdural windows. Additional sagittal and coronal reconstructions were generated. Images stored on PACS. All CT scanners at this facility use dose modulation, iterative reconstruction, and/or weight based d osing when appropriate to reduce radiation dose to as low as reasonably achievable (ALARA). [facility]: Dose Right [facility]: CareDose [facility]: Dose Right [facility]: Teradose 4D [facility]: Smart [employer]ify RADIATION DOSE: CT Rad equipment meets quality standard of care and radiation dose reduction techniq ues were employed. CTDIvol: 53.2 mGy. DLP: 1150 mGy-cm. mGy. LIMITATIONS: None. FINDINGS: VENTRICLES: Normal size and contour. CEREBRUM: No masses. No hemorrhage. No midline shift. No evidence for acute infarction. Normal gra y/white matter differentiation. No areas of low density in the white matter. CEREBELLUM: No masses. No hemorrhage. No alteration of density. No evidence for acute infarction. EXTRAAXIAL SPACES: No fluid collections. No masses. ORBITS AND GLOBE: No intra- or extraconal masses. Normal contour of globe without masses. CALVARIUM: No fracture. PARANASAL SINUSES: See separate report of the CT facial bones. SOFT TISSUES: No mass or hematoma. OTHER: No other significant finding. IMPRESSION: NORMAL BRAIN CT WITHOUT CONTRAST. EVIDENCE OF ACUTE STROKE: NO. COMMENT: Quality ID # [id number]: Final reports with documentation of one or more dose reduction techniques (e.g., Automated exposure control, adjustment of the mA and/or kV according to patient size, use of iterative reconstruction technique) TECHNICAL DOCUMENTATION: JOB ID: [id number] 2010 [employer]- All Rights Reserved Reading location - IP/workstation name: [email or web address]
[2020-12-14] MEDS ORDERED: AMOXICILLIN TR/POT CLAVULANATE 875-125 MG TAB PO ONE (11:11)
[2020-12-14 12:32] VITALS: BP 112/56
== END 2020-12-14 12:34 | disposition home or self-care (01) ==
LOC: ER 08:12
DX: R04.0 Epistaxis (principal); R09.89 Other specified symptoms and signs involving the circulatory and respiratory systems; Z79.899 Other long term (current) drug therapy; I25.10 Atherosclerotic heart disease of native coronary artery without angina pectoris; I10 Essential (primary) hypertension
CPT/HCPCS: 99284; 70450; 70486; 30901; J3490 ×3; A9270 ×2

== ENCOUNTER 2020-12-15 04:56 | Emergency (ER) | payer MEDICARE, OTHER ==
[2020-12-15] MEDS ORDERED: TRANEXAMIC ACID INJ/PF 1,000 MG/10 ML SDV TOP STA ×2 (05:44→06:30)
[2020-12-15] MEDS ORDERED: OXYMETAZOLINE HCL 0.05% NASAL SPRAY 15 ML BOTTLE ONE (06:12)
[2020-12-15] MEDS ORDERED: TRANEXAMIC ACID INJ/PF 1,000 MG/10 ML SDV ONE (06:16)
[2020-12-15] MEDS ORDERED: OXYMETAZOLINE HCL 0.05% NASAL SPRAY 15 ML BOTTLE NASL ONE (06:30)
[2020-12-15] MEDS ORDERED: AMOXICILLIN TR/POT CLAVULANATE 875-125 MG TAB PO ONE (06:31)
[2020-12-15] MEDS ORDERED: HYDROCODONE/ACETAMINOPHEN 5-325 MG (6 TAB/ER DISP) PO PRN (06:31)
--- NOTE | 2020-12-15 06:37 | ER Document Report ---
ED General - General Chief Complaint: Nose Bleed Stated Complaint: NOSE BLEED Time Seen by Provider: 12/15/20 05:43 Primary Care Provider: LEXUS YUNG MD [Primary Care Provider] - Follow up as needed TRAVEL OUTSIDE OF THE [place] IN LAST 30 DAYS: No - HPI Context: Chief Complaint: Nosebleed [This is a 80-year-old male retired [employer] presenting to the [facility] department for the fifth time in the course of the month complaining of acute nosebleed. Patient states that bleeding started around 0415 this morning, but has been going on throughout the night intermittently. Patient states he was here yesterday and had a rhino rocket placed by Dr. Sorto. Patient then went over to [facility] around 1300 hrs. yesterday and had the Rhino Rocket removed. At the time it was removed the bleeding was controlled but unfortunately it started up again overnight. ] History obtained from [patient] Symptoms began:[Last night] Onset: [Sudden] Timing: [Intermittent] Quality: [Light at times and heavy bleeding at other times] Intensity: [Mild at times and then severe at other times] Location: [Left nostril] Radiation: [Denies] [The pain does not migrate to a new location.] Aggravating factors: [none] Relieving factors: [none] [Denies] SOB [Denies] nausea [Denies] vomiting [Denies] sweats [Denies] fever [Denies] cough [Denies] calf or leg swelling or pain - Related Data Allergies/Adverse Reactions: No Known Allergies Allergy (Verified 11/15/20 07:47) Past Medical History - General Information source: Patient - Social History Smoking Status: Never Smoker Frequency of alcohol use: Occasional Drug Abuse: None Family History: None Patient has homicidal ideation: No - Past Medical History Cardiac Medical History: Reports: Hx Coronary Artery Disease, Hx Hypercholesterolemia, Hx Hypertension Pulmonary Medical History: Denies: Hx Tuberculosis GI Medical History: Reports: Hx Gastroesophageal Reflux Disease Past Surgical History: Reports: Hx Appendectomy, Hx Cardiac Catheterization - multiple stents - Immunizations Hx Diphtheria, Pertussis, Tetanus Vaccination: Yes Hx Pneumococcal Vaccination: 08/13/12 Review of Systems - Review of Systems Notes: Review of systems as below unless otherwise stated in HPI. CONSTITUTIONAL [No] fever, [No] chills. EYES [No] eye pain. ENT [No] URI symptoms, [No] sore throat, [No] ear pain. Positive epistaxis CARDIOVASCULAR [No] chest pain, [No] palpitations, [No] edema. RESPIRATORY [No] Cough, [No] SOB, [No] wheezing. GASTROINTESTINAL [No] abdominal pain, [No] nausea, [No] Diarrhea, [No] Vomiting, [No] constipation, [No] melena, [No] rectal bleeding. GENITOURINARY [No] dysuria, [No] urinary frequency, [No] hematuria, [No] urinary urgency MUSCULOSKELETAL [No] Back pain. SKIN [No] Rash. NEUROLOGIC [No] Headache, [No] recent seizures, [No] paralysis,[No] parathesias. ENDOCRINE [No] polyuria. HEMO/LYMPATIC [No] easy brusing PSYCHIATRIC [No] depression. Physical Exam - Vital signs Vitals: Temp Pulse Resp BP Pulse Ox 97.5 F 91 18 136/74 H 100 12/15/20 05:03 12/15/20 05:03 12/15/20 05:03 12/15/20 05:03 12/15/20 05:03 - Notes Notes: CONSTITUTIONAL [Vital signs reviewed, Patient appears comfortable, Alert and oriented X 3, Normal stature.] HEAD [Atraumatic, Normocephalic.] EYES [Eyes are normal to inspection, No discharge from eyes, Extraocular muscles intact, Sclera are normal, Conjunctiva are normal.] ENT [External ears normal to inspection, Nose examination significant for bleeding from the left nostril but exact site of bleed is not visible, Mouth normal to inspection.] NECK [Normal ROM, No jugular venous distention, No meningeal signs, ] RESPIRATORY CHEST [Chest is nontender, Breath sounds normal, No respiratory distress.] CARDIOVASCULAR [RRR, No murmurs, Normal S1 S2, No rub, No gallop.] ABDOMEN [Abdomen is nontender, No pulsatile masses, No other masses, Bowel sounds normal, No distension, No peritoneal signs, No hernias.] BACK [There is no CVA Tenderness, There is no tenderness to palpation, Normal inspection.] UPPER EXTREMITY [Inspection normal, No cyanosis, No clubbing, No edema, LOWER EXTREMITY [Inspection normal, No cyanosis, No clubbing, No edema, No calf tenderness, NEURO [No focal motor deficits, No focal sensory deficits, Speech normal.] SKIN [Skin is warm, Skin is dry, Skin is normal color.] PSYCHIATRIC [Normal affect. ] Course - Re-evaluation Re-evalutation: Differential diagnosis: Anterior epistaxis, posterior epistaxis, coagulopathy MDM: 7.5 cm Rhino Rocket was inserted in the typical fashion which appears to have stopped the bleeding. Patient is instructed to follow-up with the ENT doctor he is scheduled to see tomorrow for further evaluation of the etiology of the patient's nosebleed. 12/15/20 06:55 Bleeding is controlled at this time. Patient has been prescribed pain medication and antibiotics and is scheduled for follow-up with a ear nose and throat doctor tomorrow. All questions were answered prior to discharge. Emergency signs and symptoms, reasons to return to the emergency department dis cussed with patient. - Vital Signs Vital signs: Temp Pulse Resp BP Pulse Ox 97.6 F 85 22 H 130/78 H 100 12/15/20 06:42 12/15/20 06:42 12/15/20 06:42 12/15/20 06:42 12/15/20 06:42 - Laboratory Results Critical Laboratory Results Reviewed: No Critical Results - Radiology Results Critical Radiology Results Reviewed: No Critical Results Procedures - Nosebleed Procedure Left Time completed: 06:30 Location: Posterior Supplies used: Rhinorocket, Other - TXA Notes: Rhino Rocket appears to be successfully placed. There is no blood saturation seen on around the Rhino Rocket. The right nostril does not have any blood in it. There is no blood seen in the posterior oropharynx of the patient. Discharge - Discharge Clinical Impression: Posterior epistaxis Condition: Stable Disposition: HOME, SELF-CARE Additional Instructions: Return to the Emergency Department without delay if any worse. Follow-up with [facility] tomorrow 12/16/2020 as scheduled. HOME CARE INSTRUCTIONS & INFORMATION: Thank you for choosing us for your medical needs. We hope you're satisfied with the care you received. After you leave, you must properly care for your problem and, at the same time, observe its progress. Any condition can change. Some illnesses can change rapidly over hours or days. If your condition worsens, return to the Emergency Department or see your physician promptly. ABOUT YOUR X-RAYS AND EKG'S: If you had an EKG or X-rays taken, they have been read by the Emergency Physician. The X-rays and EKG's will also be read by a Radiologist or Reed Man within 24 hours. If discrepancies are noted, you will be notified by telephone. Please be certain the ED has a correct telephone number & address where you can be reached. Also, realize that some fractures or abnormalities do not show up on initial X-rays. If your symptoms continue, see your physician. ABOUT YOUR LABORATORY TEST: If you had laboratory tests, the results have been reviewed by the Emergency Physician. Some test results (for example cultures) may not be available for several days. You will be contacted if any test result shows you need additional treatment. Please be certain the ED has a correct telephone number and address where you can be reached. ABOUT YOUR MEDICATIONS: You will receive instructions on how to take your medicine on the prescription label you receive. Additional information may be provided by the Pharmacy. If you have questions afterwards, call the ED for clarification or further instructions. Some prescribed medications may cause drowsiness. Do not perform tasks such as driving a car or operating machinery without consulting your Pharmacist. If you feel you need a refill of pain medication, your condition will need re-evaluation. Please do not call for a refill of any medication. ABOUT YOUR SIGNATURE: Signature of this document acknowledges to followin. Understanding that you received emergency treatment and that you may be released before al medical problems are known or treated. Please be certain the ED has a correct phone number & address where you can be reached. 2. Acknowledgement that you will arrange for follow-up care as recommended. 3. Authorization for the Emergency Physician to provide information to your follow-up Physician in order to maximize your care. AT ANY TIME, IF YOUR SYMPTOMS CHANGE SIGNIFICANTLY OR WORSEN OR YOU DEVELOP NEW SYMPTOMS, RETURN TO THE EMERGENCY DEPARTMENT IMMEDIATELY FOR RE-EVALUATION. OUR GOAL IS TO PROVIDE EXCELLENT MEDICAL CARE! WE HOPE THAT WE HAVE MET YOUR EXPECTATIONS DURING YOUR EMERGENCY DEPARTMENT VISIT AND THAT YOU FEEL YOU HAVE RECEIVED EXCELLENT CARE! Nosebleed Instructions There is a significant chance of re-bleeding following a nosebleed. Proper care makes this less likely. Do not touch the nose for 24 hours. Do not blow the nose forcefully for one week. After 24 hours, gently apply Vaseline ointment to both nostrils with the tip of a finger, three times a day, for one week. It's normal to have a bloody mucous discharge for a few days. If active bleeding recurs, blow all the blood from the nose, then sit quietly and pinch the nose as firmly as possible for 10 minutes. If this does not stop the bleeding, return for further care. If packing was left in the nose and it starts to come out of the nostril, either tuck it back in or cut it off. Don't pull it out. Return for recheck and removal of the packing when instructed. Persons with frequent nosebleeds should avoid aspirin (unless prescribed for another reason). Humidity in the bedroom, and petroleum jelly applied to the nostrils at night may help. Prescriptions: Hydrocodone/Acetaminophen [[place] 5-325 mg Tablet] 1 tab PO Q6HP PRN #10 tablet PRN Reason: pain Amoxicillin/Potassium Clav [Augmentin 875-125 Tablet] 1 tab PO BID #20 tab Referrals: LEXUS YUNG MD [Primary Care Provider] - Follow up as needed
[2020-12-15 06:43] VITALS: BP 130/78
--- OUTSIDE RECORDS SUMMARY | 2020-12-17 10:40 | XMS REPORT ---
:1940 Author Organization [facility] [address] [place] [address] Care Team Providers Name Role Phone RUTHANN YUNG Primary Care Physician Unavailable Maegan MOCTEZUMA Attending Clinician Unavailable Eugenie Yung MD Attending Clinician Unavailable Allergies, Adverse Reactions, Alerts This patient has no known allergies or adverse reactions. Medications Ordered Filled Start Stop Current Ordering Indication Dosage Frequency Signature Comments Components Medication Medication Date Date Medication? Clinician (SIG) Name Name Decadron 6 2019-11 No Niko Traore QD Decadron 6 MG Oral - Towarnicky MG Oral Tablet 00:00: Tablet 00 TAKE 1 TABLET DAILY FOR 10 DAYS Quantity: 10 Refills: 0 Niko Yung MD Start : 0Active predniSONE 2019-11 No Niko Traore predniSONE 5 MG (21) - Towarnicky 5 MG (21) Oral Tablet 00:00: Oral Therapy 00 Tablet Pack Therapy Pack Prednisone 6 day therapy pack Quantity: 1 Refills: 0 Niko Yung MD Start : 28-Oct-2020 Active 21 Tablet Pack levoFLOXaci 2019-11 Maty Traore QD levoFLOXa c n 500 MG - Sathish in 500 MG Oral Tablet 00:00: Oral 00 Tablet TAKE 1 TABLET DAILY Quantity: 7 Refills: 0 Niko Yung MD Start : 28-Oct-2020 Active Doxycycline 2019-11 No Niko Traore Q0.5D Doxycycli n Hyclate 100 - Sathish e Hyclate MG Oral 00:00: 100 MG Capsule 00 Oral Capsule TAKE 1 CAPSULE TWICE DAILY for 10 days Quantity: 20 Refills: 0 Niko Yung MD Start : 0Active Omeprazole 2019-11 Yes Niko Traore QD Omeprazole 40 MG Oral 0-21 Towarnicky 40 MG Oral Capsule 12:15: Capsule Delayed 13 Delayed Release Release TAKE 1 CAPSULE DAILY IN THE MORNING Quantity: 90 Refills: 3 Niko Yung MD Start : 0Active Ezetimibe Yes Niko Traore Ezetimibe 10 MG Oral 1- Towarnicky 10 MG Oral Tablet 09:43: Tablet 22 Take 1 tablet at bedtime Quantity: 90 Refills: 4 Niko Yung MD Start : 24-Nov-2019 Active Rosuvastati 2019- Yes Niko Traore Rosuvasta t n Calcium - Sathish in Calcium 10 MG Oral 09:42: 10 MG Oral Tablet 35 Tablet TAKE 1 TABLET DAILY DIRECTED (DISCONTIN UE SIMVASTATI N) Quantity: 90 Refills: 4 Niko Yung MD Start : 24-Nov-2019 Active Lisinopril 2018-11 No Niko Traore QD Lisinopril 10 MG Oral - Towarnicky 10 MG Oral Tablet 09:43: Tablet 21 TAKE 1 TABLET DAILY DIRECTED Quantity: 90 Refills: 4 Niko Yung MD Start : 9Active Clopidogrel 2018-11 No Niko Traore 1 QD Clopidogr e Bisulfate - Towarnicky l 75 MG Oral 09:43: Bisulfate Tablet 11 75 MG Oral Tablet TAKE 1 TABLET DAILY Quantity: 90 Refills: 4 Niko Yung MD Start : 9Active Metoprolol 2018-11 Yes Niko Traore 1 QD Metoprolol Tartrate 25 2- Towarnicky Tartrate MG Oral 09:43: 25 MG Oral Tablet 06 Tablet TAKE 1 TABLET DAILY Quantity: 90 Refills: 4 Niko Yung MD Start : 9Active Omeprazole No Niko Traore Omeprazole 40 MG Oral 1- Towarnicky 40 MG Oral Capsule 00:00: Capsule Delayed 00 Delayed Release Release TAKE 1 CAPSULE BY MOUTH DAILY IN THE MORNING Quantity: 90 Refills: 3 Niko Yung MD Start : 9Active Clopidogrel Yes Niko Traore 1 QD Clopidogr e Bisulfate -31 Towarnicky l 75 MG Oral 00:00: Bisulfate Tablet 00 75 MG Oral Tablet TAKE 1 TABLET DAILY Quantity: 90 Refills: 4 Niko Yung MD Start : 3Active Lisinopril Yes Niko Traore QD Lisinopril 10 MG Oral 6-14 Ummarnicky 10 MG Oral Tablet 00:00: Tablet 00 TAKE 1 TABLET DAILY DIRECTED Quantity: 90 Refills: 4 Niko Yung MD Start : 2Active Aspirin 81 Yes Niko Traore 1 QD Aspirin 81 81 MG Oral 6-25 Ummarnicky 81 MG Oral Tablet 00:00: Tablet Delayed 00 Delayed Release Release TAKE 1 TABLET DAILY Quantity: 90 Refills: 3 Niko Yung MD Start : 9Active Co Q10 100 Yes Niko Traore Co Q10 100 MG Oral 6-25 Ummarnicky MG Oral Capsule 00:00: Capsule 00 TAKE DIRECTED. Refills: 0 Niko Yung MD Start : 9Active Glucosamine No Glucosamin 1500 e 1500 Complex Complex Oral Oral Capsule Capsule TAKE DIRECTED. Refills: 0 Active Vitamin B12 No Vitamin TABS B12 TABS 200mg 1 tab po every day Refills: 0 Active Problems Condition Condition Condition Status Onset Resolution Last Treatin g Comments Name Details Category Date Date Treatment Clinician Date Not on file Not on file [id number] Parotitis, Parotitis, Problem Active acute acute Cervical Cervical Problem Active lymphadenop lymphadenop athy athy COVID-19 COVID-19 Problem Active Umbilical Umbilical Problem Active hernia hernia Reflux Reflux Problem Active esophagitis esophagitis Adenomatous Adenomatous Problem Active polyp of polyp of colon colon High risk High risk Problem Active medication medication use use Encounter Encounter Problem Active for for prostate prostate cancer cancer screening screening Diastolic Diastolic Problem Active dysfunction dysfunction Left Left Problem Active ventricular ventricular hypertrophy hypertrophy Angina Angina Problem Active pectoris pectoris Thrombophle Thrombophle Problem Active bitis of bitis of leg, leg, superficial superficial Dyslipidemi Dyslipidemi Problem Active a a Chest pain Chest pain Problem Active of of uncertain uncertain etiology etiology Hypogonadis Hypogonadis Problem Active m male m male Thrombocyto Thrombocyto Problem Active penia penia Abdominal Abdominal Problem Active pain, RUQ pain, RUQ (right (right upper upper quadrant) quadrant) Essential Essential Problem Active hypertrigly hypertrigly ceridemia ceridemia Pain of Pain of Problem Active right heel right heel Positive Positive Problem Active serology serology for for Erlichiosis Erlichiosis Tick bite, Tick bite, Problem Active subsequent subsequent encounter encounter Renal cyst Renal cyst Problem Active Coronary Coronary Problem Active artery artery disease disease Essential Essential Problem Active hypertensio hypertensio n n Essential Essential Problem Active familial familial hypercholes hypercholes terolemia terolemia Anemia, Anemia, Problem Active unspecified unspecified type type Dyspnea Dyspnea Problem Active Influenza Influenza Problem Active vaccine vaccine administere administere d d Procedures Procedure Date / Time Performed Performing Clinician Tyshawn steiner EKG 2020-12-13 00:00:00 OFFICE/OUTPATIENT VISIT, EST 2020-10-21 10:00:00 History of Tonsillectomy With Adenoidectomy History of Appendectomy History of Hernia Repair History of Cath Stent Placement History of Shoulder surgery CABG Tonsillectomy Cath Stent Placement Number Of Stents Placed: Results This patient has no known results. Assessments Condition Name Status Diagnosis Date Treating Clinici an Lateral epicondylitis, right elbow Active Lateral epicondylitis, left elbow Active Pain in right elbow Active Pain in left elbow Active Hypogonadism male Active Thrombocytopenia Active Adenomatous polyp of colon Active Essential hypertriglyceridemia Active Abdominal pain, RUQ (right upper quadrant) Active Coronary artery disease Active Tick bite, subsequent encounter Active Renal cyst Active Renal cyst Active Coronary artery disease Active Essential familial hypercholesterolemia Active Essential hypertension Active Dyspnea Active Anemia, unspecified type Active Parotitis, acute Active Cervical lymphadenopathy Active Coronary artery disease Active Essential hypertension Active Essential hypertriglyceridemia Active Adenomatous polyp of colon Active Essential familial hypercholesterolemia Active High risk medication use Active Encounter for prostate cancer screening Active Positive serology for Erlichiosis Active Essential hypertension Active Dyslipidemia Active Chest pain of uncertain etiology Active Umbilical hernia Active Left ventricular hypertrophy Active Diastolic dysfunction Active Essential hypertriglyceridemia Active Angina pectoris Active Thrombophlebitis of leg, superficial Active Coronary artery disease Active Reflux esophagitis Active Tick bite, subsequent encounter Active Adenomatous polyp of colon Active Essential familial hypercholesterolemia Active High risk medication use Active Encounter for prostate cancer screening Active Positive serology for Erlichiosis Active Pain of right heel Active Essential hypertension Active Hypogonadism male Active Dyslipidemia Active Chest pain of uncertain etiology Active Umbilical hernia Active Left ventricular hypertrophy Active Diastolic dysfunction Active Thrombocytopenia Active Essential hypertriglyceridemia Active Abdominal pain, RUQ (right upper quadrant) Active Angina pectoris Active Thrombophlebitis of leg, superficial Active Coronary artery disease Active Reflux esophagitis Active Anemia, unspecified type Active Tick bite, subsequent encounter Active Anemia, unspecified type Active Essential familial hypercholesterolemia Active Essential hypertension Active Essential familial hypercholesterolemia Active Encounter for preventive health examination Active Essential hypertension Active Chest pain of uncertain etiology Active Tick bite, subsequent encounter Active Coronary artery disease Active Essential familial hypercholesterolemia Active Essential hypertension Active Angina pectoris Active Coronary artery disease Active Essential familial hypercholesterolemia Active Essential hypertension Active Chest pain of uncertain etiology Active Coronary artery disease Active Dyslipidemia Active Encounters Start End Encounter Admission Attending Care Care Encounter ID Date/Time Date/Time Type Type Clinicians Facility Department 2020-12-13 2020-12-16 Appointment [facility] [id number] 10:00:00 05:45:08 ; Jones Cavanaugh PA-C 2020-10-29 2020-10-29 Outpatient [facility] [id number] 00:00:00 00:00:00 2020-10-21 2020-10-21 Outpatient [facility] [id number] 10:00:00 10:00:00 [facility] [id number] [facility] 2020-10-03 2020-10-03 [id number] 10:45:00 10:45:00 ; Niko Pringle MD 2020-09-02 2020-09-02 Appointment [facility] [id number] 08:30:00 08:30:00 ; MICHELE steiner Clinical WB 2019-12-01 2019-12-01 Appointment [facility] [id number] 10:30:00 10:30:00 ; MICHELE steiner Echo 2019-11-27 2019-11-27 Appointment [facility] [id number] 09:30:00 09:30:00 ; Raciel Barrera MD 2019-09-05 2019-09-05 Appointment [facility] [id number] 09:15:00 09:15:00 ; Hang Mantilla MD 2019-07-27 2019-07-27 Appointment [facility] [id number] 09:00:00 09:00:00 ; Hang Mantilla MD 2019-06-16 2019-06-16 Appointment [facility] 22 [id number] 15:15:00 15:15:00 ; Niko Pringle MD 2019-05-30 2019-05-30 Appointment [facility] [id number] 14:40:00 14:40:00 ; MICHELE steiner, X-Ray 2019-05-30 2019-05-30 Appointment Sathish [facility] [id number] 13:45:00 13:45:00 ; Niko Pringle MD 2019-02-14 2019-02-14 Appointment Sathish [facility] [id number] 13:30:00 13:30:00 ; Niko Pringle MD 2018-12-12 2018-12-12 Appointment Sathish [facility] [id number] 15:45:00 15:45:00 ; Niko Pringle MD 2018-11-28 2018-11-28 Appointment [facility] [id number] 09:00:00 09:00:00 ; Jones Cavanaugh PA-C 2018-11-11 2018-11-11 Appointment [facility] [id number] 10:20:00 10:20:00 ; MICHELE steiner, Lab WB 2018-10-20 2018-10-20 Appointment [facility] [id number] 09:00:00 09:00:00 ; Raciel Barrera MD 2018-10-07 2018-10-07 Appointment [facility] [id number] 08:50:00 08:50:00 ; MICHELE steiner Clinical WB 2018-09-06 2018-09-06 Appointment [facility] [id number] 11:45:00 11:45:00 ; Niko Pringle MD Family History Family Member Diagnosis Comments Start Date Stop Date Mother Family history of hypertension Father Family history of malignant neoplasm Immunizations Ordered Immunization Filled Immunization Date Status Commen ts Refusal Reason Name Name Influenza, high dose 2020-09-02 Completed seasonal, 09:00:00 preservative-free Influenza, seasonal, 2020-01-14 Completed injectable 00:00:00 Fluzone High-Dose 0.5 2018-10-07 Completed ML Intramuscular 08:53:00 Suspension Prefilled Syringe Fluzone High-Dose 0.5 2017-11-19 Completed ML Intramuscular 00:00:00 Suspension Prefilled Syringe Influenza 2015-10-10 Completed 13:35:00 Influenza 2013-10-05 Completed 10:18:00 Influenza 2009-09-26 Completed 10:54:00 Plan of Treatment Planned Activity Planned Date Details Comments Future Scheduled Test [code = ] Future Scheduled Test [code = ] Future Scheduled Test [code = ] Social History Smoking Status Start Date Stop Date Ex-smoker (finding) Vital Signs Vital Name Observation Time Observation Value Comments Systolic blood pressure 2020-12-13 09:56:00 134 mm[Hg] Diastolic blood pressure 2020-12-13 09:56:00 60 mm[Hg] Body height 2020-12-13 09:56:00 68 [in_us] Weight 2020-12-13 09:56:00 176 [lb_av] Body mass index (BMI) 2020-12-13 09:56:00 26.76 kg/m2 [Ratio] Heart Rate 2020-12-13 09:56:00 65 /min Systolic blood pressure 2020-10-03 11:41:00 128 mm[Hg] Loca tion: LUE; Position: Sittin g Diastolic blood pressure 2020-10-03 11:41:00 64 mm[Hg] Loc ation: LUE; Position: Sittin g Weight 2020-10-03 11:41:00 179 [lb_av] Body mass index (BMI) 2020-10-03 11:41:00 27.22 kg/m2 [Ratio] Heart Rate 2020-10-03 11:41:00 69 /min Respiratory rate 2020-10-03 11:41:00 14 /min O2 SAT 2020-10-03 11:41:00 97 % Hospital Discharge Instructions NameDatesDetailsInstructions not documentedNameDatesDetailsInstructions not documented
== END 2020-12-15 06:49 | disposition home or self-care (01) ==
LOC: ER 04:56
DX: R04.0 Epistaxis (principal); I25.10 Atherosclerotic heart disease of native coronary artery without angina pectoris; I10 Essential (primary) hypertension
CPT/HCPCS: 99284; 30905; A9270 ×2; J3490 ×2